=== PATIENT | female | born 1950 | race Caucasian/White ===

== ENCOUNTER 2017-09-03 13:59 | Outpatient (CLI) | payer MEDICARE, BC | END 2017-09-03 14:00 | disposition home or self-care (01) | LOC: BICRAD 13:59 | PROVIDERS: ATTEND Neurological Surgery | DX: M54.5 Low back pain (principal); M54.2 Cervicalgia ==

== ENCOUNTER 2017-09-06 09:40 | Outpatient (CLI) | payer MEDICARE, BC | END 2017-09-06 09:41 | disposition home or self-care (01) | LOC: BICMAMMO 09:40 | DX: Z13.820 Encounter for screening for osteoporosis (principal); M81.0 Age-related osteoporosis without current pathological fracture | CPT/HCPCS: 77080 ==

== ENCOUNTER 2018-02-01 08:28 | Day surgery (SDC) | payer MEDICARE, BC ==
[2018-01-31 14:10] VITALS: BMI 23.4
[2018-02-01 09:13] LABS: #Basophils 0.1 thou/uL (0.0-0.2); #Eosinphils 0.3 thou/uL (0.0-0.7); #Lymphocytes 2.3 thou/uL (1.20-3.40); #Monocytes 0.3 thou/uL (0.11-0.59); #Neutrophils 3.4 thou/uL (1.40-6.50); %Basophils 0.9 % (0.0-1.0); %Eosinophils 4.1 % (0.0-10.0); %Lymphocytes 36.5 % (21.0-51.0); %Neutrophils 53.6 % (42.0-75.0); Hemoglobin 13.7 g/dL (12.0-16.0); Mean Corpuscular Hemoglobin 30.2 pg (27.0-31.0); Mean Corpuscular Volume 91.7 fl (81.0-99.0); Mean Platelet Volume 7.3 fL (7.4-10.4); Platelet Count 232 thou/uL (130-400); RBC Distribution Width 11.9 % (11.5-14.5); Red Blood Cell (RBC) Count 4.54 mill/uL (4.20-5.40); White Blood Cell (WBC) Count 6.4 thou/uL (4.8-10.8)
[2018-02-01] MEDS ORDERED: CEFAZOLIN/Water 2 GM/20 ML SYRINGE ONE (09:13)
[2018-02-01 09:33] LABS: Anion Gap 14 mmol/L (10-20); BUN (Urea Nitrogen) 15 mg/dL (9.8-20.1); Calc. Creatinine Clearance 60 mL/min (70-130); Calcium 9.5 mg/dL (7.8-10.44); Carbon Dioxide 26 mmol/L (23-31); Chloride 105 mmol/L (98-107); Estimated GFR-MDRD 75; Glucose 89 mg/dL (80-115); Potassium 3.6 mmol/L (3.5-5.1); Sodium 141 mmol/L (136-145)
[2018-02-01] MEDS ORDERED: Metoclopramide HCl 10 MG/2 ML VIAL ONE ×2 (10:35→19:41)
[2018-02-01] MEDS ORDERED: Fentanyl 100 MCG/2 ML VIAL ONE (10:35)
[2018-02-01] MEDS ORDERED: Ondansetron HCl/PF 4 MG/2 ML Vial ONE ×2 (10:35→19:41)
[2018-02-01] MEDS ORDERED: Bacitracin Zinc Ointment 30 gm TUBE ONE (10:39)
[2018-02-01] MEDS ORDERED: Betamet Acet/Betamet Na Ph 30 MG/5 ML VIAL ONE (10:39)
[2018-02-01] MEDS ORDERED: Bupivacaine PF 0.5% 30 ML VIAL ONE (10:39)
[2018-02-01] MEDS ORDERED: Ketorolac Tromethamine 30 MG/ML VIAL ONE (12:15)
--- NOTE | 2018-02-01 16:46 | EKG ---
Test Reason : PREOP Blood Pressure : / mmHG Vent. Rate : 078 BPM Atrial Rate : 078 BPM P-R Int : 164 ms QRS Dur : 086 ms QT Int : 374 ms P-R-T Axes : 053 012 027 degrees QTc Int : 426 ms Normal sinus rhythm Normal ECG When compared with ECG of 11-AUG-2016 09:14, T wave inversion no longer evident in Anterior leads Confirmed by DR. Hiren WHEELER ([id number]) on 02/01/2018 4:45:59 PM Referred By: NIURKA Confirmed By:DR. Hiren WHEELER
[2018-02-01] MEDS ORDERED: Lidocaine 1% PF 5 ML VIAL ONE (19:41)
[2018-02-01] MEDS ORDERED: PROPOFOL 200 MG/20 ML VIAL ONE (19:41)
--- NOTE | 2018-02-02 09:54 | OP ---
PREOPERATIVE DIAGNOSIS: Right and left thumb trigger digit. POSTOPERATIVE DIAGNOSIS: Right and left thumb trigger digit. FINDINGS: Very thick A1 rashad without much thickening of the tenosynovium, right and left thumb A1 rashad region. PROCEDURES PERFORMED: 1. Right thumb trigger digit release. 2. Left thumb trigger digit release with the left thumb done first. TOURNIQUET TIME USED: 9 minutes. ESTIMATED BLOOD LOSS: 5 mL INJECTABLE: With Celestone 4 mL drip technique on to the tendon after releasing each site. COMPLICATIONS: None. ANESTHESIA: [place] anesthesia. DESCRIPTION OF PROCEDURE: After successful general endotracheal anesthesia, the limb was prepped and draped. We prepped both limbs simultaneously with unsterile tourniquets. We approached the left fi rst by rotating the table 45 degrees to position, and inflated the tourniquet after exsanguinat ion of the limb and then outlined a zigzag incision centered on the A1 rashad mass, which was easily palpable. We carried through the skin and subcutaneous tissues incision with a knife, dissected down to we could visualize both nerves with tenotomy scissors, isolated thickening and held there with a combination of retractors. We then visualized the A1 rashad completely and released it until there w as no evidence at all of compression. Then, we lifted the tendon up and found no mass, ganglion or o ther impediment. No tenosynovial was thick enough to require tenosynovectomy. Then, we released the tourniquet, obtained hemostasis. Drip technique, the Celestone on the wound an d closed the wound with interrupted 4-0 nylon in a simple pattern. Bulky dressing was applied and dominique d excellent capillary refill and color. The exact mirror image of procedure to include incision, medications, and even the number of sutures were done on the right side without complication. A bulky dressing was applied here. Tourniquet mariano e here was 9 and the patient left the operating room without evidence of anesthetic or operative comp lication.
== END 2018-02-01 13:55 | disposition home or self-care (01) ==
LOC: SDC 08:28
PROVIDERS: ATTEND Orthopaedic Surgery Hand Surgery
PROC: 0LN80ZZ Release Left Hand Tendon, Open Approach (ICD-10-PCS; principal; 2018-02-01)
PROC: 0LN70ZZ Release Right Hand Tendon, Open Approach (ICD-10-PCS; 2018-02-01)
DX: M65.312 Trigger thumb, left thumb (principal); M65.311 Trigger thumb, right thumb; Z79.2 Long term (current) use of antibiotics; Z79.899 Other long term (current) drug therapy
CPT/HCPCS: 80048; 85025; 93005; 93010; 96374; J0131; J0702; J1885; J2001; J2405; J2704; J2765; J3010; S0020

== ENCOUNTER 2018-03-05 10:45 | Outpatient (CLI) | payer MEDICARE, BC ==
--- NOTE | 2018-03-05 12:14 | RAD ---
LUMBAR SPINE THREE VIEWS: 03/05/2018 HISTORY: Lumbar spine fusion. Back pain. COMPARISON: None. FINDINGS: Five lumbar type vertebral bodies are present. Bilateral pedicle screws are present at L5 and S1. T he patient is status post bilateral laminectomy at L5. There is an intervertebral disk device at L5- S1 with degenerative endplate change. No anterolisthesis or retrolisthesis. No acute fracture. IMPRESSION: Degenerative and postoperative changes of the lumbar spine, as described above. POS: [facility]
== END 2018-03-05 10:46 | disposition home or self-care (01) ==
LOC: SCSRAD 10:45
PROVIDERS: ATTEND Neurological Surgery
DX: M47.896 Other spondylosis, lumbar region (principal); Z98.1 Arthrodesis status
CPT/HCPCS: 72100

== ENCOUNTER 2019-02-14 09:58 | Outpatient (CLI) | payer MEDICARE, BC ==
--- NOTE | 2019-02-14 11:08 | BD ---
BONE DENSITOMETRY USING DEXA: HISTORY: Postmenopausal screening for osteoporosis. FINDINGS: Exam: DEXA Bone Density BMD (g/cm2) Right Hip: Neck: 0.507 T-Score: -3.1 Z-Score: 1.3 Total: 0.681 T-Score: -2.1 Z-Score: -0.7 Left Hip: Neck: 0.500 T-Score: -3.1 Z-Score: -1.4 Total 0.619 T-Score: -2.6 Z-Score: -1.2 Impression: Osteoporosis. POS: [facility]
== END 2019-02-14 09:59 | disposition home or self-care (01) ==
LOC: BICMAMMO 09:58
PROVIDERS: ATTEND Internal Medicine Rheumatology
DX: M81.0 Age-related osteoporosis without current pathological fracture (principal)
CPT/HCPCS: 77080

== ENCOUNTER 2019-02-14 10:29 | Outpatient (CLI) | payer MEDICARE, BC ==
--- NOTE | 2019-02-14 11:07 | MMO ---
Bilateral MAMMO Bilat Screen [facility]. CLINICAL HISTORY: Patient is 68 years old and is seen for screening. The patient has no family history of breast cancer. The patient has no personal history of cancer. VIEWS: The views performed were: bilateral craniocaudal with tomosynthesis and bilateral mediolateral oblique with tomosynthesis. FILMS COMPARED: The present examination has been compared to prior imaging studies performed at and 06/21/2016. MAMMOGRAM FINDINGS: There are scattered fibroglandular densities. There are no suspicious masses, suspicious calcifications, or new areas of architectural distortion. IMPRESSION: THERE IS NO MAMMOGRAPHIC EVIDENCE OF MALIGNANCY. A ROUTINE FOLLOW-UP MAMMOGRAM IN 1 YEAR IS RECOMMENDED. THE RESULTS OF THIS EXAM WERE SENT TO THE PATIENT. ACR BI-RADS Category 1 - Negative MAMMOGRAPHY NOTE: 1. A negative mammogram report should not delay a biopsy if a dominant of clinically suspicious mass is present. 2. Approximately 10% to 15% of breast cancers are not detected by mammography. 3. Adenosis and dense breasts may obscure an underlying neoplasm.
== END 2019-02-14 10:30 | disposition home or self-care (01) ==
LOC: BICMAMMO 10:29
PROVIDERS: ATTEND Obstetrics & Gynecology
DX: Z12.31 Encounter for screening mammogram for malignant neoplasm of breast (principal)
CPT/HCPCS: 77063; 77067

== ENCOUNTER → 2020-03-01 | Outpatient (CLI) | payer MEDICARE, BC ==
--- NOTE | 2020-03-01 09:03 | BD ---
DEXA BONE DENSITY STUDY: HISTORY: Postmenopausal. FINDINGS: BMD (g/cm2) Right Femoral Neck: Femoral Neck: 0.514 T-Score: -3.0 Total Femur: 0.664 T-Score: -2.3 Left Femoral Neck: Femoral Neck: 0.452 T-Score: -3.6 Total Femur: 0.622 T-Score: -2.6 Impression: Osteoporosis of both hips. POS: [facility]
== END ==
LOC: BICMAMMO 08:45
PROVIDERS: ATTEND Internal Medicine
DX: M81.0 Age-related osteoporosis without current pathological fracture (principal)
CPT/HCPCS: 77080

== ENCOUNTER 2021-05-16 10:04 | Outpatient (CLI) | payer MEDICARE, BC | END 2021-05-16 10:05 | disposition home or self-care (01) | LOC: BICMAMMO 10:04 | PROVIDERS: ATTEND Internal Medicine Rheumatology | DX: M81.0 Age-related osteoporosis without current pathological fracture (principal) | CPT/HCPCS: 77080 ==

== ENCOUNTER 2022-06-16 08:45 | Outpatient (CLI) | payer MEDICARE, BC | END 2022-06-16 08:46 | disposition home or self-care (01) | LOC: BICCT 08:45 | PROVIDERS: ATTEND Neurological Surgery | DX: M46.1 Sacroiliitis, not elsewhere classified (principal); M54.50 Low back pain, unspecified; K57.30 Diverticulosis of large intestine without perforation or abscess without bleeding; M16.11 Unilateral primary osteoarthritis, right hip; M48.061 Spinal stenosis, lumbar region without neurogenic claudication; Z98.890 Other specified postprocedural states | CPT/HCPCS: 72120; 72131; 72192 ==

== ENCOUNTER 2022-11-27 09:45 | Outpatient (CLI) | payer MEDICARE, BC | END 2022-11-27 09:46 | disposition home or self-care (01) | LOC: BICMAMMO 09:45 | PROVIDERS: ATTEND Internal Medicine Endocrinology, Diabetes & Metabolism | DX: M81.0 Age-related osteoporosis without current pathological fracture (principal) | CPT/HCPCS: 77080 ==